=== PATIENT | female | born 1960 | race African-American/Black ===

== ENCOUNTER 2024-02-03 10:29 | Emergency (ER) | payer MEDICAID, OTHER ==
[~2024-02-03] VITALS: Ht 170.2 cm; Wt 81.8 kg
[~2024-02-03 10:29] MED LIST: RISP2TAB4 PO
[2024-02-03 10:37] VITALS: TEMP 98
[2024-02-03] MEDS ORDERED: FLUT16SP NASAL (13:04)
[2024-02-03] MEDS ORDERED: TRAM50TA5 PO ×2 (13:04→15:03)
[2024-02-03] MEDS ORDERED: BACL10TA PO (13:04)
[2024-02-03] MEDS ORDERED: CETI10TA58 PO (13:04)
[2024-02-03] MEDS ORDERED: NIFE-78 PO (13:04)
[2024-02-03] MEDS ORDERED: BUSP15 PO (13:04)
[2024-02-03] MEDS ORDERED: GABA600T10 PO (13:04)
[2024-02-03] MEDS ORDERED: SENN-277 PO (13:04)
[2024-02-03] MEDS ORDERED: ATOR40TA71 PO (13:04)
[2024-02-03] MEDS ORDERED: FURO20TA4 PO (13:04)
[2024-02-03] MEDS ORDERED: ESCI20TA37 PO (13:04)
[2024-02-03] MEDS ORDERED: CYAN-53 PO (13:04)
[2024-02-03] MEDS ORDERED: CARV6.2534 PO (13:04)
[2024-02-03] MEDS ORDERED: LIDO1ADH63 TD (13:04)
[2024-02-03] MEDS: KETOROLAC TROMETHAMINE 30 MG/ML VIAL IM ONE (13:08)
[2024-02-03 14:26] VITALS: BP 124/74; PULSE 84; RESP 16
[2024-02-03] MEDS ORDERED: IBUP-1492 PO (15:03)
== END 2024-02-03 15:29 | disposition home or self-care (01) ==
LOC: EMS 10:29
DX: S32.019A Unspecified fracture of first lumbar vertebra, initial encounter for closed fracture (principal); E11.9 Type 2 diabetes mellitus without complications; F32.A Depression, unspecified; F17.210 Nicotine dependence, cigarettes, uncomplicated; Z85.9 Personal history of malignant neoplasm, unspecified; Z90.49 Acquired absence of other specified parts of digestive tract; Z98.890 Other specified postprocedural states; Z88.0 Allergy status to penicillin; Z88.5 Allergy status to narcotic agent; W01.0XXA Fall on same level from slipping, tripping and stumbling without subsequent striking against object, initial encounter; Y93.89 Activity, other specified; Y92.89 Other specified places as the place of occurrence of the external cause; Y99.8 Other external cause status
CPT/HCPCS: 99285; 72131; 82962; 96372; J1885